=== PATIENT | female | born 1995 | race Asian ===

== ENCOUNTER 2019-04-10 11:14 | Emergency (ER) | payer MEDICAID, OTHER ==
--- NOTE | 2019-04-10 12:43 | EDPHY ---
H & P Stated Complaint: tripped fell off ramp sunday/seen at /has n/v narayanan Time Seen by Provider: 04/10/19 11:24 HPI/ROS: CHIEF COMPLAINT:Headache,2 episodes of vomiting HISTORY OF PRESENT ILLNESS: This is a 23 year old female who was referred to the ED by her physician at Urgent Care. Ms. Salinas fell from the step of a truck three days ago while at work. She landed on her left side, injuring her left hip. She did not lose consciousness, isn't certain if she hit her head. She was initially treated at an [facility]gent [facility] and diagnosed with concussion and hip injury. She was seen again today, reported continued headache and two bouts of vomiting. The examining physician found her mental status to be different from her MS at the time of her first exam and referred her to the ED. Lucas stated to me that she vomited last night and again this morning. She does not have nausea. She continues with a throbbing frontal headache. No vision changes. No speech difficulties. No numbness or weakness. She is not aware of a decrease in alertness or of confusion. REVIEW OF SYSTEMS: A ten system review of systems was performed and is negative with the exception of the items mentioned in the HPI. Past medical history: None Past surgical history: None Social history: She works at [employer]. Single. No tobacco or alcohol use. Here with her mother. General Appearance: Alert. Vital signs reviewed. Head: Normocephalic. Eyes: Pupils equal and round, no conjunctival injection, no discharge. Anicteric. ENT, Mouth: Mucous membranes are moist, no oropharyngeal erythema or edema. Neck: Mildly tender over lower cervical spine, no step off or deformity, no muscle spasm. No pain with neck movement. Respiratory: Lungs are clear to auscultation; no wheezes, rales, or rhonchi. Cardiovascular: Regular rate and rhythm; no murmur, rub, or gallop. Gastrointestinal: Abdomen is soft and nontender, no masses or organomegaly, bowel sounds normal. Skin: Warm and dry, no rashes on exposed skin, normal color. Back: Nontender to palpation over the thoracolumbar spine. No CVAT. Extremities: No lower extremity edema, no calf tenderness or swelling. Neurological: Alert and oriented. Moving all four extremities easily and equally. Cranial nerves II through XII are examined and are intact (visual acuity not tested). Strength is 5 over 5 bilaterally with testing of all major motor groups. Sensation is intact to light touch over all 4 extremities. Deep tendon reflexes are 2+ in the biceps and knees bilaterally. Gait is normal. [id number] is performed accurately. Psychiatric: Normal affect. - Personal History LMP (Females 10-55): 15-21 Days Ago Current Tetanus Diphtheria and Acellular Pertussis (TDAP): Yes Tetanus Vaccine Date: probably current? ([employer] student) - Medical/Surgical History Hx Asthma: No Hx Chronic Respiratory Disease: No Hx Diabetes: No Hx Cardiac Disease: No Hx Renal Disease: No Hx Cirrhosis: No Hx Alcoholism: No Hx HIV/AIDS: No Hx Splenectomy or Spleen Trauma: No Other PMH: denies - Social History Smoking Status: Current every day smoker Constitutional: Initial Vital Signs Temperature (C) 36.7 C 04/10/19 11:17 Heart Rate 74 04/10/19 11:17 Respiratory Rate 19 04/10/19 11:17 Blood Pressure 110/78 04/10/19 11:17 O2 Sat (%) 95 04/10/19 11:17 O2 Delivery Mode Room Air Allergies/Adverse Reactions: No Known Allergies Allergy (Verified 04/10/19 11:16) Home Medications: Medication Instructions Recorded Ibuprofen 04/10/19 Medical Decision Making ED Course/Re-evaluation: CT of cervical spine and head reported to me as negative/normal. I reviewed the films. No skull fracture, intracranial hemorrhage. No cervical spine fracture. I do not find an altered mental status and do not suspect electrolyte or glucose disorder. Patient reassured by CT findings. I feel that she has concussion/post concussion syndrome. Referral to Dr. Pamella French provided. She will follow recommendations of her employer concerning other followup. Danger signs reviewed. Departure - Departure Disposition: Home, Routine, Self-Care Clinical Impression: Concussion Qualifiers: Encounter type: initial encounter Loss of consciousness presence/duration: without LOC Qualified Code(s): S06.0X0A - Concussion without loss of consciousness, initial encounter Condition: Good Instructions: Concussion (ED) Additional Instructions: Adult Pain & Fever Control: We recommend Acetaminophen (Tylenol) and Ibuprofen (Motrin,Advil) for pain and fever control. When fever is high or pain severe, both drugs can be used at the same time, but at different intervals. Please note the time differences. Your dose is: Acetaminophen [650]mg every 4 to 6 hours Ibuprofen [400]mg every [6] hours with food Note: do not take Acetaminophen with Hydrocodone (Vicodin, Lortab) or Oycodone (Percocet). These medications also contain Acetaminophen. No more than 3000mg of Acetaminophen should be taken in 24 hours (for an adult). Referrals: Pamella French MD [Medical Doctor] - As per Instructions
[2019-04-10 12:51] VITALS: BP 108/67
== END 2019-04-10 12:51 | disposition home or self-care (01) ==
DX: S06.0X0A Concussion without loss of consciousness, initial encounter (principal); W17.89XA Other fall from one level to another, initial encounter; Y92.810 Car as the place of occurrence of the external cause; Y99.0 Civilian activity done for income or pay